=== PATIENT | female | born 1945 | race Hispanic/Latino ===

== ENCOUNTER 2018-12-05 08:44 | Day surgery (SDC) | payer MEDICARE ==
[~2018-12-05 08:44] MED LIST: SUBLIMAZE ONE; TETRACAINE 0.5% OD SCH; VERSED ONE
--- NOTE | 2018-12-05 09:20 | Anesthesia Day of Surgery ---
Anesthesia Day of Surgery - Day of Surgery Patient Examined: Yes Patient H&P Reviewed: Yes Patient is NPO: Yes Beta Blockers: Yes
--- NOTE | 2018-12-05 09:21 | Anesthesia Consultation ---
Anesthesia Consult and Med Hx Date of service: 12/05/18 - Airway Anesthetic Teeth Evaluation: Dentures (IN), Edentulous ROM Head & Neck: Adequate Mental/Hyoid Distance: Adequate Mallampati Class: Class II Intubation Access Assessment: Probably Good - Pre-Operative Health Status ASA Pre-Surgery Classification: ASA3 Proposed Anesthetic Plan: MAC - Pulmonary Hx Smoking: Yes (CIG. 3-4 / DAY) Hx Asthma: Yes COPD: Yes Hx Sleep Apnea: No (HIGH RISK ON PRESCREEN. SNORES) - Cardiovascular System Hx Hypertension: Yes - Central Nervous System CVA: Yes (MINI STROKE 1997) Hx Back Pain: Yes Hx Psychiatric Problems: Yes (Anxiety) - Gastrointestinal Hx Ulcer: Yes Hx Gastroesophageal Reflux Disease: Yes - Hematic Hx Anemia: No - Other Systems Hx Alcohol Use: No Hx Substance Use: No Hx Cancer: No Hx Obesity: Yes
[2018-12-05] MEDS: MYDRIACYL OD SCH ×3 (09:40→09:50)
[2018-12-05] MEDS: VIGAMOX OD SCH ×3 (09:40→09:50)
[2018-12-05] MEDS: AK-Dilate OD SCH ×3 (09:40→09:50)
[2018-12-05] MEDS ORDERED: PRED FORTE 1% OD ONE (10:14)
--- NOTE | 2018-12-05 10:15 | Operative Report ---
Operative Report Operative Report: PATIENT'S NAME: DATE OF : DATE OF SURGERY: 12/05/2018 PREOPERATIVE DIAGNOSIS: Cataract right eye POSTOPERATIVE DIAGNOSIS: Same OPERATIVE PROCEDURE: Phacoemulsification with intraocular lens implantation, right eye SURGEON: Nini Mehta M.D. LEVEL VIAL INSPECTOR AND TESTER SURGEON: Demond Lens: [id number] 19.5 D ANESTHESIA: Monitored anesthesia care in combination with topical and intracameral anesthesia because of the established specific risk of reflux, arrhythmias, or anxiety attacks associated with ocular manipulation, as well as the difficulty of the operators teacher to manage such potentially catastrophic events while simultaneously attempting to complete the surgical procedure and was deemed necessary for the patient's safety to have an Blacksmith Helper present during the procedure whenever possible. An Blacksmith Helper was utilized to regulate the intravenous sedation of the patient so the patient was cooperative yet not asleep in order for the patient to successfully maintain fixation of the eye on the operating light of the microscope. COMPLICATIONS: No surgical complications No blood loss. ALLERGIES: Penicillin sulfa PROGNOSIS: Excellent INDICATIONS FOR SURGERY: The patient is undergoing surgery in the hopes of eliminating or improving these visual difficulties. PROCEDURE: After arriving at the surgery center, the patient was given topical anesthetic and dilating drops, as noted in the record. The patient was then taken into the operating room and given more anesthetic drops. The eyelids, lashes, and lid margins were scrubbed with Betadine solution, and the patient was draped. The Nurse Blacksmith Helper administered IV sedation and monitored the patient during the procedure. The eye was then fixated with a 0.12, and a stab incision was made in the peripheral clear cornea into the anterior chamber. This was made on my left side. Viscoelastic was next used to fill the anterior chamber. The eye was once again fixated with the 0.12 forceps and a keratome was used make an incision in clear cornea peripherally on my right hand side temporally. The capsule forceps were used to open the central anterior capsule and then make a continuous round capsulotomy. Hydrodissection was carried out utilizing a cannula and balanced salt solution to delineate the cortical material from the capsule and the nucleus from the cortical material. The phaco tip was introduced into the eye and used to remove the anterior cortical material in the area of the capsulotomy. Then the phaco tip was buried into the nucleus, and a chopping instrument was introduced into the eye and used to provide countertraction in the nucleus between this instrument and the phaco tip fracturing the nucleus. This procedure was repeated multiple times, providing multiple small segments of the lens, and then the phaco tip was used to remove each of these segments. An I/A tip was then used to remove the remaining cortex. The anterior chamber was refilled with viscoelastic. An one-piece, acrylic intraocular lens was then placed into an inserting cartridge. The tip of the inserting cartridge was introduced into the keratome incision and into the anterior chamber. The implant was gently advanced through the cartridge and into the eye, where it unfolded, and both haptics were placed in the capsular bag, where it centered nicely and appeared to be well fixated. After placement of the intraocular lens, the I~and~A handpiece was placed back into the eye and used to remove the viscoelastic, including viscoelastic that was behind the optic of the intraocular lens. The anterior chamber was then filled with balanced salt solution, and hydration of the wound was used to cause swelling of the wound and more appropriate watertight closure. When the wound was found to be firm, the patient was asked to comment on how bright the light was. If there was no light perception at all or if the light was substantially dimmer than during the rest of the surgery, the amount of fluid in the eye was decompressed to lower the intraocular pressure until the patient could see the bright light again. This was done to avoid any damage or decreased blood flow to the optic nerve. MEDICATIONS APPLIED AT END OF SURGERY: One drop of Pred Forte and Vigamox The patient was given a shield to wear at night and was instructed not to rub or push on the eye. DISCHARGE SUMMARY: The patient was released in stable condition. The patient and those with the patient were given a written sheet of postoperative instructions and counseling on any abnormal laboratory studies. The patient is to see us tomorrow for follow-up in the office and is to call immediately for any difficulties. Nini Mehta M.D. Date
--- NOTE | 2018-12-05 10:16 | Short Stay Summary ---
Short Stay Documentation Date of service: 12/05/18 - History H&P: obtained from office - Allergies and Medications Current Medications: Allergies Penicillins Adverse Reaction (Intermediate, Verified 12/03/18 12:07) Rash Sulfa (Sulfonamide Antibiotics) Adverse Reaction (Intermediate, Verified 12/03/18 12:08) Rash Home Medications Medication Instructions Recorded Confirmed Last Taken Type Iron 65 mg PO DAILY 12/03/18 12/03/18 Unknown History Losartan-Hctz 100-25 mg Tab 100 mg PO DAILY 12/03/18 12/03/18 Unknown History Metoprolol 25 mg PO DAILY 12/03/18 12/03/18 Unknown History NexIUM 40 mg PO DAILY 12/03/18 12/03/18 Unknown History Rosuvastatin (Nf) 20 mg PO DAILY 12/03/18 12/03/18 Unknown History Active Medications Moxifloxacin HCl (Vigamox) 1 drops OD Q5MIN TAHIRA Stop: 12/05/18 15:00 Phenylephrine HCl (Ak-Dilate) 1 drops OD Q5MIN TAHIRA Stop: 12/05/18 15:00 Prednisolone Acetate (Pred Forte 1%) 1 drops OD ONCE ONE Stop: 12/05/18 10:15 Tetracaine HCl (Tetracaine 0.5%) 1 drops OD Q5M TAHIRA Stop: 12/05/18 15:00 Tropicamide (Mydriacyl) 1 drops OD Q5MIN TAHIRA Stop: 12/05/18 15:00 - Brief post op/procedure progress note Date of procedure: 12/05/18 Pre-op diagnosis: right cataract Post-op diagnosis: same Procedure: Phacoemulsification with intraocular lens insertion right eye Anesthesia: MAC, local Surgeon: ISMA MILLIGAN Estimated blood loss: none Pathology: none Condition: stable - Disposition Condition at discharge: Good Disposition: DC-01 TO HOME OR SELFCARE - Discharge Diagnoses (1) Cortical age-related cataract, right eye Status: Resolved Short Stay Discharge Plan Follow up with: PARMINDER DOOLEY MD [Primary Care Provider] - 7 Days
[2018-12-05 10:52] VITALS: BP 110/68
--- NOTE | 2018-12-05 20:17 | Post Anesthesia Evaluation ---
- Post Anesthesia Evaluation Patient Participated: Yes Airway Patent: Yes Stable Respiratory Function: Yes Nausea/Vomiting: No Temp > 96.8F: Yes Pain Manageable: Yes Adequeate Hydration: Yes Anesthesia Complications: No Block Receding Appropriately: Not Applicable Patient on Ventilator: No
== END 2018-12-05 11:00 | disposition home or self-care (01) ==
LOC: OR 08:44
DX: H25.011 Cortical age-related cataract, right eye (principal); E78.00 Pure hypercholesterolemia, unspecified; I10 Essential (primary) hypertension; J44.9 Chronic obstructive pulmonary disease, unspecified; K21.9 Gastro-esophageal reflux disease without esophagitis; E66.9 Obesity, unspecified; M19.90 Unspecified osteoarthritis, unspecified site; F41.9 Anxiety disorder, unspecified; F17.210 Nicotine dependence, cigarettes, uncomplicated; Z79.899 Other long term (current) drug therapy; Z88.0 Allergy status to penicillin; Z88.2 Allergy status to sulfonamides; Z98.41 Cataract extraction status, right eye; Z98.42 Cataract extraction status, left eye; Z90.49 Acquired absence of other specified parts of digestive tract; Z68.36 Body mass index [BMI] 36.0-36.9, adult; Z98.51 Tubal ligation status; Z90.710 Acquired absence of both cervix and uterus; Z87.440 Personal history of urinary (tract) infections; Z98.890 Other specified postprocedural states; Z86.73 Personal history of transient ischemic attack (TIA), and cerebral infarction without residual deficits
CPT/HCPCS: 66984; J2250; J3010; V2632

== ENCOUNTER 2018-12-19 08:50 | Day surgery (SDC) | payer MEDICARE ==
[~2018-12-19 08:50] MED LIST changes: +AK-Dilate OS SCH; +MYDRIACYL OS SCH; -SUBLIMAZE ONE; -TETRACAINE 0.5% OD SCH; +TETRACAINE 0.5% OS SCH; -VERSED ONE; +VIGAMOX OS SCH
--- NOTE | 2018-12-19 09:53 | Anesthesia Day of Surgery ---
Anesthesia Day of Surgery - Day of Surgery Patient Examined: Yes Patient H&P Reviewed: Yes Patient is NPO: Yes
--- NOTE | 2018-12-19 09:57 | Anesthesia Consultation ---
Anesthesia Consult and Med Hx Date of service: 12/19/18 - Airway Anesthetic Teeth Evaluation: Dentures, Edentulous ROM Head & Neck: Adequate Mental/Hyoid Distance: Adequate Mallampati Class: Class II Intubation Access Assessment: Good - Pre-Operative Health Status ASA Pre-Surgery Classification: ASA3 Proposed Anesthetic Plan: MAC - Pulmonary Hx Smoking: Yes (SINCE AGE 18; 3-4CIG/DAY) Hx Asthma: Yes COPD: Yes (Pt states can climb up two flights of stairs) Hx Sleep Apnea: No (HIGH RISK ON PRESCREEN. SNORES) - Cardiovascular System Hx Hypertension: Yes Hx Peripheral Vascular Disease: Yes (Temporal Arteritis) - Central Nervous System CVA: Yes (MINI STROKE 1997) Hx Back Pain: Yes Hx Psychiatric Problems: No - Gastrointestinal Hx Ulcer: Yes Hx Gastroesophageal Reflux Disease: Yes - Hematic Hx Anemia: No - Other Systems Hx Alcohol Use: No Hx Substance Use: No Hx Cancer: No Hx Obesity: Yes
[2018-12-19] MEDS ORDERED: VERSED ONE (10:17)
[2018-12-19] MEDS ORDERED: SUBLIMAZE ONE (10:17)
--- NOTE | 2018-12-19 10:48 | Operative Report ---
Operative Report Operative Report: PATIENT'S NAME: DATE OF : DATE OF SURGERY: 12/19/2018 PREOPERATIVE DIAGNOSIS: Cataract left eye POSTOPERATIVE DIAGNOSIS: Same OPERATIVE PROCEDURE: Phacoemulsification with intraocular lens implantation, left eye SURGEON: Nini Mehta M.D. CERT OCCUPATIONAL THERAPY ASST SURGEON: Demond Lens: [id number] 19.5 D ANESTHESIA: Monitored anesthesia care in combination with topical and intracameral anesthesia because of the established specific risk of reflux, arrhythmias, or anxiety attacks associated with ocular manipulation, as well as the difficulty of the communication instructor to manage such potentially catastrophic events while simultaneously attempting to complete the surgical procedure and was deemed necessary for the patient's safety to have an Box Folding Machine Operator present during the procedure whenever possible. An Box Folding Machine Operator was utilized to regulate the intravenous sedation of the patient so the patient was cooperative yet not asleep in order for the patient to successfully maintain fixation of the eye on the operating light of the microscope. COMPLICATIONS: No surgical complications No blood loss. ALLERGIES: Sulfa penicillin PROGNOSIS: Excellent INDICATIONS FOR SURGERY: The patient is undergoing surgery in the hopes of eliminating or improving these visual difficulties. PROCEDURE: After arriving at the surgery center, the patient was given topical anesthetic and dilating drops, as noted in the record. The patient was then taken into the operating room and given more anesthetic drops. The eyelids, lashes, and lid margins were scrubbed with Betadine solution, and the patient was draped. The Nurse Box Folding Machine Operator administered IV sedation and monitored the patient during the procedure. The eye was then fixated with a 0.12, and a stab incision was made in the peripheral clear cornea into the anterior chamber. This was made on my left side. Viscoelastic was next used to fill the anterior chamber. The eye was once again fixated with the 0.12 forceps and a keratome was used make an incision in clear cornea peripherally on my right hand side temporally. The capsule forceps were used to open the central anterior capsule and then make a continuous round capsulotomy. Hydrodissection was carried out utilizing a cannula and balanced salt solution to delineate the cortical material from the capsule and the nucleus from the cortical material. The phaco tip was introduced into the eye and used to remove the anterior cortical material in the area of the capsulotomy. Then the phaco tip was buried into the nucleus, and a chopping instrument was introduced into the eye and used to provide countertraction in the nucleus between this instrument and the phaco tip fracturing the nucleus. This procedure was repeated multiple times, providing multiple small segments of the lens, and then the phaco tip was used to remove each of these segments. An I/A tip was then used to remove the remaining cortex. The anterior chamber was refilled with viscoelastic. An one-piece, acrylic intraocular lens was then placed into an inserting cartridge. The tip of the inserting cartridge was introduced into the keratome incision and into the anterior chamber. The implant was gently advanced through the cartridge and into the eye, where it unfolded, and both haptics were placed in the capsular bag, where it centered nicely and appeared to be well fixated. After placement of the intraocular lens, the I~and~A handpiece was placed back into the eye and used to remove the viscoelastic, including viscoelastic that was behind the optic of the intraocular lens. The anterior chamber was then filled with balanced salt solution, and hydration of the wound was used to cause swelling of the wound and more appropriate watertight closure. When the wound was found to be firm, the patient was asked to comment on how bright the light was. If there was no light perception at all or if the light was substantially dimmer than during the rest of the surgery, the amount of fluid in the eye was decompressed to lower the intraocular pressure until the patient could see the bright light again. This was done to avoid any damage or decreased blood flow to the optic nerve. MEDICATIONS APPLIED AT END OF SURGERY: One drop of Pred Forte and Vigamox The patient was given a shield to wear at night and was instructed not to rub or push on the eye. DISCHARGE SUMMARY: The patient was released in stable condition. The patient and those with the patient were given a written sheet of postoperative instructions and counseling on any abnormal laboratory studies. The patient is to see us tomorrow for follow-up in the office and is to call immediately for any difficulties. Nini Mehta M.D. Date
[2018-12-19 10:49] VITALS: BP 120/68
--- NOTE | 2018-12-19 10:49 | Short Stay Summary ---
Short Stay Documentation Date of service: 12/19/18 - History H&P: obtained from office - Allergies and Medications Current Medications: Allergies Penicillins Adverse Reaction (Intermediate, Verified 12/17/18 15:51) Rash Sulfa (Sulfonamide Antibiotics) Adverse Reaction (Intermediate, Verified 12/17/18 15:51) Rash Home Medications Medication Instructions Recorded Confirmed Last Taken Type Iron 65 mg PO DAILY 12/03/18 12/17/18 12/04/18 09:00 History Losartan-Hctz 100-25 mg Tab 100 mg PO DAILY 12/03/18 12/17/18 12/04/18 09:00 History Metoprolol 25 mg PO DAILY 12/03/18 12/17/18 12/05/18 06:00 History NexIUM 40 mg PO DAILY 12/03/18 12/17/18 12/04/18 09:00 History Rosuvastatin (Nf) 20 mg PO DAILY 12/03/18 12/17/18 12/04/18 09:00 History Active Medications Moxifloxacin HCl (Vigamox) 1 drops OS Q5MIN TAHIRA Stop: 12/19/18 23:59 Phenylephrine HCl (Ak-Dilate) 1 drops OS Q5MIN TAHIRA Stop: 12/19/18 23:59 Prednisolone Acetate (Pred Forte 1%) 1 drops OS ONCE NR Tetracaine HCl (Tetracaine 0.5%) 1 drops OS Q5M TAHIRA Stop: 12/19/18 23:59 Tropicamide (Mydriacyl) 1 drops OS Q5MIN TAHIRA Stop: 12/19/18 23:59 - Brief post op/procedure progress note Date of procedure: 12/19/18 Pre-op diagnosis: left cataract Post-op diagnosis: same Procedure: Phacoemulsification with intraocular lens insertion left eye Anesthesia: MAC, local Surgeon: ISMA MILLIGAN Estimated blood loss: none Pathology: none Condition: stable - Disposition Condition at discharge: Good Disposition: DC-01 TO HOME OR SELFCARE - Discharge Diagnoses (1) Cortical age-related cataract, left eye Status: Resolved Short Stay Discharge Plan Follow up with: PARMINDER DOOLEY MD [Primary Care Provider] - 7 Days
[2018-12-19] MEDS ORDERED: PRED FORTE 1% OS NR (11:00)
== END 2018-12-19 08:51 | disposition home or self-care (01) ==
LOC: OR 08:50
DX: H25.012 Cortical age-related cataract, left eye (principal); E78.00 Pure hypercholesterolemia, unspecified; I10 Essential (primary) hypertension; J44.9 Chronic obstructive pulmonary disease, unspecified; J45.909 Unspecified asthma, uncomplicated; K21.9 Gastro-esophageal reflux disease without esophagitis; E66.9 Obesity, unspecified; I73.9 Peripheral vascular disease, unspecified; F17.210 Nicotine dependence, cigarettes, uncomplicated; M19.90 Unspecified osteoarthritis, unspecified site; F41.9 Anxiety disorder, unspecified; Z88.2 Allergy status to sulfonamides; Z88.0 Allergy status to penicillin; Z79.899 Other long term (current) drug therapy; Z90.49 Acquired absence of other specified parts of digestive tract; Z68.36 Body mass index [BMI] 36.0-36.9, adult; Z98.51 Tubal ligation status; Z90.710 Acquired absence of both cervix and uterus; Z87.440 Personal history of urinary (tract) infections; Z98.890 Other specified postprocedural states; Z86.73 Personal history of transient ischemic attack (TIA), and cerebral infarction without residual deficits
CPT/HCPCS: 66984; J2250; J3010; V2632